=== PATIENT | female | born 1975 | race Caucasian/White ===

== ENCOUNTER → 2023-11-27 09:36 | Outpatient (REF) | payer OTHER, SELFPAY | LOC: WDC 09:36 | PROVIDERS: ATTENDING PHYSICIAN Obstetrics & Gynecology | DX: N63.23 Unspecified lump in the left breast, lower outer quadrant (principal) | CPT/HCPCS: 76642; 77062; 77066 ==

== ENCOUNTER → 2024-01-24 06:14 | Day surgery (SDC) | payer OTHER, SELFPAY | LOC: GI 06:14 | PROVIDERS: ATTENDING PHYSICIAN Internal Medicine | DX: Z12.11 Encounter for screening for malignant neoplasm of colon (principal); K57.30 Diverticulosis of large intestine without perforation or abscess without bleeding; D12.3 Benign neoplasm of transverse colon | CPT/HCPCS: 45385; 45380; 88305 ==

== ENCOUNTER → 2025-02-12 11:37 | Outpatient (REF) | payer OTHER, SELFPAY | LOC: WDC 11:37 | PROVIDERS: ATTENDING PHYSICIAN Obstetrics & Gynecology; FAMILY PHYSICIAN Nurse Practitioner Adult Health | DX: Z12.31 Encounter for screening mammogram for malignant neoplasm of breast (principal) | CPT/HCPCS: 77063; 77067 ==

== ENCOUNTER 2025-03-24 12:00 | Emergency (ER) | payer OTHER, SELFPAY ==
[2025-03-24 12:03] VITALS: BP 143/87
[2025-03-24 13:55] VITALS: BMI 24.9
[2025-03-24 13:55] LABS: Hematocrit 36.0 % (37.0-47.0); Hemoglobin 12.1 g/dL (12.0-16.0); Mean Corp Hgb Conc. 33.6 g/dL (33.0-37.0); Mean Corpuscular Volume 86.7 fL (81.0-99.0); Nucleated Red Blood Cells % 0 %; Platelet Count 238 10^3/uL (130-400); Red Cell Dist. Width 13.3 % (11.5-14.5)
[2025-03-24 14:04] LABS: Blood Urea Nitrogen 14 mg/dl (7-17); Calcium 9.5 mg/dl (8.4-10.2); Carbon Dioxide 28 mmol/L (22-30); Chloride 104 mmol/L (98-107); Estimated Creatinine Clearance 83 ml/min; Glucose 88 mg/dl (70-99); Potassium 4.3 mmol/L (3.5-5.1); Sodium 138 mmol/L (135-145); eGFR > 60.00
--- NOTE | 2025-03-24 14:05 | ED.GENMED ---
History of Present Illness
General
Chief Complaint: Headache
Source: patient
Time Seen by Provider: 03/24/25 13:32
History of Present Illness
History of Present Illness:
50-year-old female with past medical history of anxiety and depression presenting to the ER for evaluation of a right sided temporal pain for the last 5 days, pain is intermittent, when it does occur is often moderate to severe, lasts approximately
15 to 20 minutes and then resolves, this morning thought that her pupils were not as dilated as they normally are, contacted her [employer] as she is currently in the process of being on hormone replacement therapy and was recommended to come to the ER
for further evaluation. At time of my exam patient states she is asymptomatic. There is no exacerbating or alleviating factors. Denies any blurred vision or double vision or ocular pain. There is no tearing or rhinorrhea. No history of
headaches. Patient does tell me that about 2 months ago her Wellbutrin was changed to a generic version and at that time patient states she started to feel 'different' but was not having headaches at that time.
Past History
Past History
ED Past Medical History: Psychiatric
ED Past Surgical History:
Social History
Tobacco: Non-smoker
Alcohol: Occasional
Drug: None
Personal:
Living: with family
Review of Systems
Review of Systems
All Other Systems: ROS reviewed and negative except as documented in HPI and ROS
Phy Exam
Physical Exam
Physical Exam:
GENERAL: Alert , in no apparent distress
HEAD: Normocephalic atraumatic
EYE: conjunctiva clear, pupils 3mm, round, PERRL, EOMI
NECK: Supple, no significant adenopathy. no meningismus
ENT: o/p clr, mmm.
CARDIAC: Regular rate and rhythm
LUNGS: Clear breath sounds bilaterally, no acute respiratory distress, no wheezes/rales/rhonchi
NEUROLOGICAL: Alert and oriented
SKIN: Warm and dry, skin intact.
MUSCULOSKELETAL: well perfused.
PSYCH: Normal and appropriate interaction.
Scores
Heart Failure Risk
Heart Failure Risk Score: Not Applicable
Heart Score for Chest Pain Patients
STEMI patient?: Not applicable
Withdrawal Assessment of Alcohol
Withdrawal Assessment Completed?: Not applicable
Course
Orders/Labs/Results
Orders:
Orders
03/24/25 13:41
CT Head W/o Iv Contrast Urgent
Comment:
Reason For Exam: right temporal headaches x 5 days
03/24/25 13:45
Basic Metabolic Panel Urgent
CRP [C-Reactive Protein] Urgent
03/24/25 13:46
Complete Blood Count/With Diff Urgent
ESR [Erythrocyte Sed Rate] Urgent
Abnormal Lab Results
03/24/25
13:46
RBC 4.15 L 10^6/uL
(4.20-5.40)
Hct 36.0 L %
(37.0-47.0)
Absolute Monos (auto) 0.8 H 10^3/uL
(0.1-0.6)
Monocytes % 11.5 H %
(1.7-9.3)
03/24/25 13:46
03/24/25 13:45
Vital Signs
Initial and Last Documented VS:
Initial Vital Signs
Temp Pulse Resp BP Pulse Ox
97.5 F 76 18 143/87 100
03/24/25 12:03 03/24/25 12:03 03/24/25 12:03 03/24/25 12:03 03/24/25 12:03
Last Documented Vital Signs
Temp Pulse Resp BP Pulse Ox
97.5 F 74 18 137/85 98
03/24/25 12:03 03/24/25 15:36 03/24/25 15:36 03/24/25 15:36 03/24/25 15:36
MDM/Problems Addressed
Differential Diagnosis Includes:
Tension headache
Migraine headache
Cluster headache
GCA
CVA/TIA
Medication side effects
MDM/Problems Addressed:
50-year-old female presenting to the ER for evaluation of intermittent right temporal headaches over the last 5 days, asymptomatic presently. Will check labs including ESR/CRP. CT of the head ordered. Disposition pending.
*Radiology
Radiology exam reviewed: radiology read reviewed
*Pulse Oximetry
SaO2: 100
Oxygen Mode of Delivery: Room air
Patient hypoxic: no
*Critical Care Note
Total Time (30-74mins, 75-104mins- exclusive of procedures): Not Applicable
Patient Management
Discussion with other providers: PCP
Escalation/DeEscalation of care consider admission/obs:
Patient CT scan is unremarkable for any acute pathology. Given patient normally does not have headaches I did notify the primary care provider via [place] text to help expedite an outpatient follow-up. They will be able to see the patient in office
either tomorrow or , patient to call the office to arrange.
ED Attending Note
-
Portions of this chart may have been created with voice recognition software.� Occasional wrong word or��sound alike� substitutions may have occurred due to the inherent limitations of voice recognition software.
Discharge Plan
Departure
Patient Disposition: Home (Routine Discharge)
Date of Disposition: 03/24/25
Time of Disposition: 15:27
Patient with high blood pressure during this ER visit?: Yes
Discharge Problem:
Headache
Instructions: Headache, Adult (DC)
Prescriptions:
No Action
Vitamins Tablet
1 tab PO DAILY
ibuprofen 600 MG tablet
600 mg PO Q4HPRN PRN (Reason: cramps) 0RF
Referrals:
Reema Mcneal CRNP [Family Provider, Internal Medicine]
Interventions
Interventions:
*General Assessment Last Done: 03/24/25 13:55
*Neglect/Abuse Screening Last Done: 03/24/25 13:55
*ED COVID-19 Vaccine History Last Done: 03/24/25 13:55
*ED Influenza Vaccine History Last Done: 03/24/25 13:55
[facility] Fall Risk Assessment Tool Last Done: 03/24/25 13:55
*Risk Screen - Suicide (C-SSRS) Last Done: 03/24/25 13:55
*Nursing Disposition Last Done: 03/24/25 15:37
ED- Neurological Assessment Last Done: 03/24/25 13:47
Discharge Date and Time
Discharge Date/Time: 03/24/25 15:37
Print Language: TANZANIAN
[2025-03-24 14:32] LABS: C-Reactive Protein < 5.00 mg/L (0.0-10.00)
[2025-03-24 15:36] VITALS: BP 137/85
== END 2025-03-24 15:37 | disposition home or self-care (01) ==
LOC: EMR 12:00
PROVIDERS: Physician Assistant Medical; EMERGENCY PHYSICIAN Emergency Medicine; FAMILY PHYSICIAN Nurse Practitioner Adult Health
DX: R51.9 Headache, unspecified (principal); R03.0 Elevated blood-pressure reading, without diagnosis of hypertension; F41.9 Anxiety disorder, unspecified; F32.A Depression, unspecified
CPT/HCPCS: 99284; 70450; 80048; 85025; 85652; 86140